=== PATIENT | female | born 1945 | race Caucasian/White ===

== ENCOUNTER 2021-08-11 09:03 | Observation (INO) | payer OTHER ==
--- NOTE | 2021-08-06 10:50 | RAD REPORT ---
EXAM DESCRIPTION: RAD - Chest Pa And Lat (2 Views) - 08/06/2021 10:23 am CLINICAL HISTORY: Pre op pending knee replacement COMPARISON: None TECHNIQUE: Frontal and lateral views of the chest were obtained. FINDINGS: The lungs are clear of a peripheral mass or consolidation. Interstitial markings are promi nent believed be baseline fibrotic change. Aortic valve/ proximal aortic stent in place. No acute jassi lure or volume overload. Heart size is normal and central vasculature is within normal limits. No pleural effusion or pneumothorax seen. No acute bony finding noted. No aortic abnormality. IMPRESSION: No acute cardiopulmonary process. Prominent interstitial pattern is believed to be baseline fibrotic change.
[2021-08-06 11:07] LABS: Absolute Lymphocytes (CBC) 1.8 K/uL (0.7-4.9); Lymphocytes % 31.6 % (15.3-44.8); MPV 9.2 fL (7.6-11.3); RBC Red Blood Cell Count 3.66 M/uL (3.86-4.86)
[2021-08-06 11:11] LABS: Protime INR 0.94
[2021-08-06 11:11] LABS: Urine Appearance CLEAR (Clear); Urine Bilirubin NEGATIVE (Negative); Urine Blood 2+ (Negative); Urine Color YELLOW (Yellow); Urine Glucose NEGATIVE (Negative); Urine Protein NEGATIVE (Negative); Urine Specific Gravity 1.015 (1.005-1.030); Urine Urobilinogen 0.2 mg/dL (0.2-1.0); Urine pH 6.5 (5.0-7.0)
[2021-08-06 11:20] LABS: Urine Microscopic Reflex ORDER UMIC
[2021-08-06 11:34] LABS: Albumin 3.7 g/dL (3.4-5.0); Bilirubin Total 0.5 mg/dL (0.2-1.0); Potassium 4.2 mmol/L (3.5-5.1); Protein, Total 6.9 g/dL (6.4-8.2)
[2021-08-06 11:42] LABS: Urine Bacteria <20 /HPF (<20)
[2021-08-06 11:43] LABS: Urine Mucus SLIGHT /HPF (NONE SEEN)
[2021-08-11] MEDS: NA CHLORIDE 0.9% 1,000 ML ONE ×2 (09:32→11:19)
[2021-08-11] MEDS ORDERED: CEFAZOLIN/SWI 2gm 2 GM/20 ML SYR ONE (09:46)
[2021-08-11] MEDS ORDERED: FENTANYL CITR 100 MCG/2 ML ONE ×2 (10:06→13:45)
[2021-08-11] MEDS ORDERED: MIDAZOLAM HCL 2 MG/2 ML INJ ONE ×2 (10:06→16:04)
[2021-08-11] MEDS ORDERED: BUPIVACAINE 0.25% PF 10 ML VIAL ONE (10:06)
[2021-08-11] MEDS ORDERED: dexAMETHasone 4 MG/ML VIAL ONE (10:07)
[2021-08-11] MEDS ORDERED: LIDOCAINE 1% MPF 5 ML VIAL ONE (10:08)
[2021-08-11] MEDS ORDERED: CELECOXIB 100 MG CAPSULE ONE (10:43)
[2021-08-11] MEDS ORDERED: ACETAMINOPHEN 500 MG TAB ONE (10:45)
[2021-08-11] MEDS ORDERED: ONDANSETRON 4 MG/2 ML VIAL ONE (12:36)
[2021-08-11] MEDS ORDERED: ROCURONIUM 50 MG/5 ML VIAL IV ONE (12:36)
[2021-08-11] MEDS ORDERED: propofoL 200 MG/20 ML VIAL IV ONE (12:36)
[2021-08-11] MEDS ORDERED: NS 0.9% VIAL 10 ML ONE (12:36)
[2021-08-11] MEDS ORDERED: LIDOCAINE 2% MPF 5 ML VIAL ONE (12:36)
[2021-08-11] MEDS ORDERED: KETAMINE HCL 500 MG/5 ML VIAL ONE (12:36)
[2021-08-11] MEDS ORDERED: TRANEXAMIC ACID 1,000 MG/10 ML VIAL IV ONE (12:43)
[2021-08-11] MEDS ORDERED: HYDROMORPHONE HCL 1 MG/ML INJ ONE (12:43)
[2021-08-11] MEDS ORDERED: GLYCOPYRROLATE 0.2 MG/ML SYR ONE (13:20)
[2021-08-11] MEDS ORDERED: ONDANSETRON 4 MG/2 ML VIAL IV PRN (15:10)
--- NOTE | 2021-08-11 15:10 | P.BOP ---
Preoperative diagnosis: right knee arthritis Postoperative diagnosis: same Primary procedure: right TKA Estimated blood loss: 100 ccs Anesthesia: General Complications: None Transferred to: Recovery Room Condition: Good
--- OUTSIDE RECORDS SUMMARY | 2021-08-11 15:27 | XMS REPORT | Continuity of Care Document ---
:1945 Author Organization [facility] t Address [address] [place] [address] Care Team Providers Name Role Phone Jurado Attending Clinician Unavailable Problems This patient has no known problems. Allergies, Adverse Reactions, Alerts This patient has no known allergies or adverse reactions. Medications This patient has no known medications. Procedures This patient has no known procedures. Encounters Start End Encounter Admission Attending Care Care Encounter Source Date/Time Date/Time Type Type Clinicians Facility Department ID 2021-08-04 Outpatient Adrien [facility] [id number] [facility] 09:16:02 [facility] 2021-07-15 Outpatient Adrien [facility] [id number] [facility] 15:30:05 [facility] 2021-07-14 Outpatient Adrien [facility] [id number] [facility] 15:20:03 [facility] 2021-06-17 Outpatient Adrien [facility] [id number] [facility] 15:30:03 [facility] 2021-06-11 Outpatient Adrien [facility] [id number] [facility] 17:06:02 [facility] 2021-05-20 Outpatient Jurado, [facility] [id number] [facility] 14:27:27 [facility] [id number] [facility] 2021-05-20 Outpatient Jurado, [facility] [id number] [facility] 14:27:07 [place] [id number] [facility] 2021-08-05 2021-08-05 ambulatory [facility] [id number] [facility] 2021-07-31 2021-07-31 ambulatory [facility] [id number] [facility] 2021-07-29 2021-07-29 ambulatory [facility] [id number] [facility] 2021-07-28 2021-07-28 ambulatory [facility] [id number] [facility] 2021-07-07 2021-07-07 ambulatory [facility] [id number] [facility] 2021-07-02 2021-07-02 ambulatory [facility] [id number] [facility] 2021-06-17 2021-06-17 ambulatory [facility] [id number] [facility] 2021-06-11 2021-06-11 ambulatory [facility] [id number] [facility] 2021-06-11 2021-06-11 ambulatory [facility] [id number] [facility] 2021-06-11 2021-06-11 ambulatory [facility] [id number] [facility] 2021-06-04 2021-06-04 ambulatory [facility] [id number] [facility] 2021-05-18 2021-05-18 ambulatory [facility] [id number] [facility] 2021-04-23 2021-04-23 ambulatory [facility] [id number] [facility] 2021-04-14 2021-04-14 ambulatory [facility] [id number] [facility]00 [facility] Results This patient has no known results.
[2021-08-11] MEDS ORDERED: ALBUTEROL 2.5 MG/3 ML NEB SOL ONE (15:44)
[2021-08-11] MEDS ORDERED: MORPHINE 4 MG/ML SYR ONE (16:31)
[2021-08-11] MEDS: HYDROCODONE/APAP 7.5/325 MG TAB PO PRN ×2 (17:23→21:02)
[2021-08-11] MEDS: CEFAZOLIN 1 GM in NA CHLORIDE 0.9% 50 ML IVPB SCH (17:24)
[2021-08-11 18:28] VITALS: BMI 37.0
[2021-08-11] MEDS ORDERED: FUROSEMIDE 40 MG TABLET PO PRN (18:31)
[2021-08-11] MEDS ORDERED: HOME MED 1 EA UNK (Tizanidine Hcl [Tizanidine Hcl] 4 MG Capsule) PO PRN (18:31)
--- NOTE | 2021-08-11 18:31 | P.CNS ---
Date of Consult: 08/11/21 Allergies Sulfa (Sulfonamide Antibiotics) Allergy (Verified 08/11/21 11:24) Nausea/Vomiting tramadol Allergy (Verified 08/11/21 11:24) Anaphylaxis Home Medications: Aspirin [Aspirin EC 81 MG] 81 mg PO BEDTIME 08/06/21 Atorvastatin Calcium [Lipitor] 20 mg PO BEDTIME 08/06/21 Cholecalciferol (Vitamin D3) [Vitamin D3] 50 mcg PO DAILY 08/06/21 Furosemide [Lasix] 40 mg PO DAILYPRN PRN 08/06/21 Gabapentin 600 mg PO QID 08/06/21 Losartan/Hydrochlorothiazide [Losartan-Hctz 100-25 mg Tab] 1 each PO DAILY 08/06/21 Melatonin 10 mg PO BEDTIME 08/06/21 Metformin HCl [Glucophage] 500 mg PO BIDWM 08/06/21 Multivitamin [Multiple Vitamins] 1 each PO DAILY 08/06/21 Quetiapine Fumarate [Seroquel] 50 mg PO BEDTIME 08/06/21 Tizanidine HCl 4 mg PO BEDTIME PRN PRN 08/06/21 - Past Medical/Surgical History Diabetic: Yes -: diabetes -: CHF -: asthma -: IBS -: hypertension -: Stage 3 kidney disease -: CAD -: [place] -: Oziel Hammer's disease (esophageal disfunction) -: cardiac stent -: back surgery -: valve replacement -: cholecystectomy, half liver removed at same time -: appendectomy -: right rotator cuff repair -: esophageal surgery - Family History Father Medical History: Heart disease, Hypertension, Diabetes, Stroke Mother Medical History: Heart disease, Cancer, Kidney disease Notes: bladder cancer Sister Medical History: Cancer, Other (see notes) Notes: breast cancer - Social History Alcohol use: No CD- Drugs: No Caffeine use: No Place of Residence: Home Physical Examination Temp Pulse Resp BP Pulse Ox 96.6 F L 71 18 145/57 H 99 08/11/21 17:16 08/11/21 17:16 08/11/21 17:23 08/11/21 17:16 08/11/21 17:23
[2021-08-11] MEDS ORDERED: TIZANIDINE 4 MG TABLET PO PRN (18:42)
[2021-08-11] MEDS ORDERED: GABAPENTIN 300 MG CAP PO SCH (21:00)
[2021-08-11] MEDS ORDERED: ATORVASTATIN 20 MG TAB PO SCH (21:00)
[2021-08-11] MEDS ORDERED: HOME MED 1 EA UNK (Melatonin [Melatonin] 10 MG Tab.Subl) PO SCH (21:00)
[2021-08-11] MEDS ORDERED: QUETIAPINE 25 MG TAB PO SCH (21:00)
[2021-08-11] MEDS ORDERED: ASPIRIN EC 81 MG TAB PO SCH (21:00)
[2021-08-11] MEDS ORDERED: HOME MED 1 EA UNK (Gabapentin [Gabapentin] 600 MG Tablet) PO SCH (21:00)
[2021-08-11] MEDS ORDERED: HOME MED 1 EA UNK (Quetiapine Fumarate [Seroquel] 50 MG Tablet) PO SCH (21:00)
[2021-08-11] MEDS ORDERED: MELATONIN 5 MG TABLET PO SCH (21:00)
[2021-08-11] MEDS: DOCUSATE NA 100 MG CAP PO PRN (21:02)
[2021-08-11] MEDS: GABAPENTIN 300 MG CAP PO SCH (21:03)
[2021-08-11] MEDS ORDERED: MORPHINE 4 MG/ML SYR IV ONE (22:08)
[2021-08-12] MEDS: CEFAZOLIN 1 GM in NA CHLORIDE 0.9% 50 ML IVPB SCH ×2 (00:24→09:59)
[2021-08-12] MEDS: HYDROCODONE/APAP 7.5/325 MG TAB PO PRN ×3 (01:23→09:57)
--- NOTE | 2021-08-12 02:23 | OP ---
Date of Procedure: 08/11/2021 Surgeon: Alvaro Estes MD Preoperative Diagnosis: Right knee severe arthritic changes. Postoperative Diagnosis: Right knee severe arthritic changes. Procedure: Right total knee arthroplasty using the Perfectguard Total Knee System. Estimated Blood Loss: 200 cc. Complications: There were no complications. Specimen: No pathology specimen sent. Indications: Ms. Lopez is a 75-year-old female who has had severe pain and problems related to her right knee for some time despite conservative management. Risks, benefits, and alternatives of diffe rent methods of treatments were discussed with her and she selects total knee arthroplasty. The [facility] risks, benefits, and alternatives of this were again discussed. She states she understands ever ything as presented and wishes to proceed. Description Of Procedure: The patient was taken to the operating room and placed in the supine posit ion. General anesthesia was obtained by the Anesthesia staff. She has previously had a block in the holding area. Following this, a well-padded tourniquet was placed on superior right thigh. Her rig ht lower extremity than prepped draped usual sterile fashion for procedure. Following this, a standa rd rather extensile incision was made because of excess adipose tissue and was taken down carefully t hrough skin and soft tissue. Meticulous hemostasis was being maintained using Bovie electrocautery. The correct plane is encountered and her patella was visualized after some dissection, and a standar d medial parapatellar arthrotomy was then performed. There was approximately 60 cc of rather normal- appearing synovial fluid expressed. Following this, both the medial and lateral menisci, as well as the anterior cruciate ligament and some fat pad are removed and the knee is brought into flexion with the patella everted. With protection using medial and lateral retractors, intramedullary alignment guide was then placed. This was followed by establishing the distal cut. Rotation was checked and t he sizing guide was then placed. It was found to be a 62.5. The remainder of the femoral cuts were then performed with the exception, we did not cut the box at this point. All bony fragmentation was removed and attention was then turned to the tibia where the medial and lateral menisci were ensured to be completely resected. After this, a tibial cut was made in standard fashion. It was then sized . The knee was then trialed and the patella was found to glide very well and it appeared to have equ al flexion and extension, tightness as well as stability to varus and valgus stress as well as being aligned with perhaps a very slight amount of valgus as planned. After this, the box was cut and the tibia was punched. The patella is calipered and cut with the trial patella being placed. The femur, patella, and tibial tray are then cemented in place after the box has been cut and bone plugs placed . Any unsupported cement was removed with the hip in extension with the patella clamped and a size 1 0 trial polyethylene being placed. After the cement hardened, it was again brought to flexion and ex tension. The patella appears to glide well. It is symmetric in both flexion and extension, coming t o good extension. Decision was made to continue with the 10 mm PS poly, which was then placed withou t difficulty and clamped in place. It was again irrigated to ensure there was no unsupported cement or bony features and brought through range of motion. After this, the arthrotomy was closed in a naomie ertight fashion using interrupted Ethibond sutures. The skin was then closed using Vicryl sutures, f ollowed by carey. The patient was then placed in a well-padded sterile dressing, awakened, and ashley en to recovery room in good condition. There were no complications. SE/MODL Voice ID: [id number] Report ID: [id number]
[2021-08-12] MEDS: ENOXAPARIN 30 MG/0.3 ML SQ SCH ×2 (05:40→09:00)
[2021-08-12] MEDS ORDERED: HOME MED 1 EA UNK (Multivitamin [Multiple Vitamins] Tablet) PO SCH (09:00)
[2021-08-12] MEDS ORDERED: VITAMIN D 1000 UNIT TAB PO SCH (09:00)
[2021-08-12] MEDS ORDERED: HOME MED 1 EA UNK (Cholecalciferol (Vitamin D3) [Vitamin D3] 50 MCG Capsule) PO SCH (09:00)
[2021-08-12] MEDS ORDERED: MULTIVITAMIN TAB PO SCH (09:00)
[2021-08-12] MEDS: GABAPENTIN 300 MG CAP PO SCH ×3 (09:58→16:51)
[2021-08-12] MEDS: METFORMIN HCL 500 MG TAB PO SCH ×2 (10:00→16:51)
[2021-08-12] MEDS: DOCUSATE NA 100 MG CAP PO PRN (10:09)
[2021-08-12] MEDS ORDERED: Oxycodone HCl/Acetaminophen 1 TAB TAB PO PRN (13:33)
[2021-08-12 14:56] VITALS: O2SAT 95
[2021-08-12 17:08] VITALS: BP 125/58; TEMP 98
[2021-08-12] MEDS ORDERED: MORPHINE 4 MG/ML SYR IM ONE (20:26)
== END 2021-08-12 20:58 ==
LOC: OR 09:03 → 2ND 15:24
PROVIDERS: ADMIT Orthopaedic Surgery; ATTEND Orthopaedic Surgery
PROC: 0SRC069 Replacement of Right Knee Joint with Oxidized Zirconium on Polyethylene Synthetic Substitute, Cemented, Open Approach (ICD-10-PCS; principal; 2021-08-11 11:15)
DX: M17.11 Unilateral primary osteoarthritis, right knee (principal); I13.0 Hypertensive heart and chronic kidney disease with heart failure and stage 1 through stage 4 chronic kidney disease, or unspecified chronic kidney disease; E11.22 Type 2 diabetes mellitus with diabetic chronic kidney disease; N18.30 Chronic kidney disease, stage 3 unspecified; I50.9 Heart failure, unspecified; I25.10 Atherosclerotic heart disease of native coronary artery without angina pectoris; K58.9 Irritable bowel syndrome, unspecified; J45.909 Unspecified asthma, uncomplicated; G61.0 Guillain-Barre syndrome; E78.00 Pure hypercholesterolemia, unspecified; Z20.822 Contact with and (suspected) exposure to COVID-19; Z79.84 Long term (current) use of oral hypoglycemic drugs; Z79.82 Long term (current) use of aspirin; Z79.899 Other long term (current) drug therapy; Z88.2 Allergy status to sulfonamides; Z88.6 Allergy status to analgesic agent; Z95.2 Presence of prosthetic heart valve; Z95.5 Presence of coronary angioplasty implant and graft; Z95.1 Presence of aortocoronary bypass graft; Z90.49 Acquired absence of other specified parts of digestive tract; Z90.710 Acquired absence of both cervix and uterus; Z82.62 Family history of osteoporosis; Z82.49 Family history of ischemic heart disease and other diseases of the circulatory system; Z83.3 Family history of diabetes mellitus; Z82.3 Family history of stroke; Z80.52 Family history of malignant neoplasm of bladder; Z80.3 Family history of malignant neoplasm of breast
CPT/HCPCS: 93005; 85025; 36415 ×2; 86900; 86850; 85610; 86901; 82947 ×5; 88304; 88311; 85730; 85018; 85014; 80053; 71046; 97110 ×2; 97112; 97116; 97139; 97161; 97530 ×3; 94010; 27447; U0002; C1776; J2704; J1100; J1650; J2250 ×2; J3010 ×2; J1170; J0690 ×4; J7030; J2405 ×2; G0379; G0378 ×2; 81003; 81015

== ENCOUNTER 2021-09-16 11:40 | Emergency (ER) | payer OTHER ==
--- OUTSIDE RECORDS SUMMARY | 2021-09-16 11:42 | XMS REPORT | Continuity of Care Document ---
:1945 Author Organization [facility] t Address [address] [address] Care Team Providers Name Role Phone ROSA Attending Clinician Unavailable Adrien Attending Clinician Unavailable Flaquito Olguin Attending Clinician Unavailable Flaquito Olguin Admitting Clinician Unavailable Payers Payer Name Policy Type Policy Number Effective Date Expiration Date S terry [facility] [id number] Problems This patient has no known problems. Allergies, Adverse Reactions, Alerts This patient has no known allergies or adverse reactions. Medications This patient has no known medications. Procedures This patient has no known procedures. Encounters Start End Encounter Admission Attending Care Care Encounter Source Date/Time Date/Time Type Type Clinicians Facility Department ID 2021-08-24 Outpatient KIMBERLY ALVAREZ ENCCLR [id number] KIMBERLY 12:33:43 N [facility]BDI 2021-08-04 Outpatient Jurado, [facility] [id number] Common 09:16:02 [facility] 2021-07-15 Outpatient Adrien, [facility] [id number] Common 15:30:05 [facility] 2021-07-14 Outpatient Jurado, [facility] [id number] Common 15:20:03 [facility] 2021-06-17 Outpatient Jurado, [facility] [id number] Common 15:30:03 [facility] 2021-06-11 Outpatient Jurado, STLMLC ST[facility] [id number] Common 17:06:02 [facility] 2021-05-20 Outpatient Jurado, STLMLC ST[facility] [id number] Common 14:27:27 [facility] 2021-05-20 Outpatient Jurado, [facility] [id number] Common 14:27:07 [facility] 2021-08-28 2021-08-28 ambulatory [facility]LMLC [facility] [id number] Common 00:00:00 00:00:00 [facility] 2021-08-28 2021-08-28 ambulatory STLMLC STL[facility]C [id number] Common 00:00:00 00:00:00 [facility] 2021-08-12 2021-08-27 Inpatient 3 Khal[place], [place] [id number] [facility] 22:22:00 10:52:00 [place] 0420 2021-08-10 2021-08-10 ambulatory STLMLC [facility] [id number] Common 00:00:00 00:00:00 [facility] 2021-08-05 2021-08-05 ambulatory STLMLC ST[facility]C [id number] Common 00:00:00 00:00:00 [facility] 2021-07-31 2021-07-31 ambulatory STLMLC STL[facility]C [id number] Common 00:00:00 00:00:00 [facility] 2021-07-29 2021-07-29 ambulatory STLMLC [facility] [id number] Common 00:00:00 00:00:00 [facility] 2021-07-28 2021-07-28 ambulatory STLMLC STL[facility]C [id number] Common 00:00:00 00:00:00 [facility] 2021-07-07 2021-07-07 ambulatory STLMLC ST[facility] [id number] Common 00:00:00 00:00:00 [facility] 2021-07-02 2021-07-02 ambulatory STLMLC STL[facility]C [id number] Common 00:00:00 00:00:00 [facility] 2021-06-17 2021-06-17 ambulatory STLMLC STL[facility]C [id number] Common 00:00:00 00:00:00 [facility] 2021-06-11 2021-06-11 ambulatory STLMLC STL[facility]C [id number] Common 00:00:00 00:00:00 [facility] 2021-06-11 2021-06-11 ambulatory STLMLC ST[facility] [id number] Common 00:00:00 00:00:00 [facility] 2021-06-11 2021-06-11 ambulatory STLMLC [facility] [id number] Common 00:00:00 00:00:00 [facility] 2021-06-04 2021-06-04 ambulatory STLMLC ST[facility]C [id number] Common 00:00:00 00:00:00 [facility] 2021-05-18 2021-05-18 ambulatory STLMLC STL[facility]C [id number] Common 00:00:00 00:00:00 [facility] 2021-04-23 2021-04-23 ambulatory STLMLC STL[facility]C [id number] Common 00:00:00 00:00:00 [facility] 2021-04-14 2021-04-14 ambulatory STLMLC STL[facility]C [id number] Common 00:00:00 00:00:00 [facility] Results This patient has no known results.
[2021-09-16 12:29] LABS: Absolute Lymphocytes (CBC) 1.6 K/uL (0.7-4.9); Hematocrit 35.4 % (36.0-45.0); Lymphocytes % 28.4 % (15.3-44.8); MPV 9.8 fL (7.6-11.3); RBC Red Blood Cell Count 3.53 M/uL (3.86-4.86)
--- NOTE | 2021-09-16 12:33 | ER ---
Nurse's Notes [facility] Name: Brenda Lopez Age: 76 yrs Sex: Female : 1945 Arrival Date: 09/16/2021 Time: 11:42 Bed 19 Private MD: Diagnosis: Syncope;Atrioventricular block, second degree Presentation: 09/16 11:42 Chief complaint: Patient states: pt reports syncope/ falls x1 week. Coronavirus screen: wynne Vaccine status: Patient reports receiving the 2nd dose of the covid vaccine. Ebola Screen: Patient denies travel to an Ebola-affected area in the 21 days before illness onset. Initial Sepsis Screen: Does the patient meet any 2 criteria? No. Patient's initial sepsis screen is negative. Does the patient have a suspected source of infection? No. Patient's initial sepsis screen is negative. Risk Assessment: Do you want to hurt yourself or someone else? Patient reports no desire to harm self or others. Onset of symptoms was September 16, 2021. 11:42 Method Of Arrival: EMS: [facility] 11:42 Acuity: ELIDA 3 wynne Triage Assessment: 11:48 General: Appears in no apparent distress. Behavior is calm, cooperative. Pain: wynne Complains of pain in generalize pain. Historical: - Allergies: 11:48 Sulfa (Sulfonamide Antibiotics); wynne 11:48 tramadol; wynne - Home Meds: 11:48 tizanidine 4 mg oral cap 1 cap at bed time [Active]; Lasix 40 mg Oral tab 1 tab once wynne daily [Active]; melatonin 10 mg Oral tab nightly [Active]; cholecalciferol (vitamin D3) 50 mcg (2,000 unit) oral cap [Active]; metformin 500 mg Oral tab 1 tab 2 times per day [Active]; losartan-hydrochlorothiazide 100-25 mg oral tab 1 tab once daily [Active]; gabapentin 300 mg oral cap 1 cap 3 times per day [Active]; atorvastatin 20 mg oral tab 1 tab nightly [Active]; aspirin 81 mg Oral tab [Active]; oxycodone-acetaminophen 2.5-325 mg Oral tab 1 tab q8hr [Active]; Colace 100 mg oral cap 1 cap once daily [Active]; - PMHx: 11:48 Chronic obstructive lung disease; Diabetes mellitus; Hypertensive disorder; Asthma; wynne Chronic back pain; - Immunization history:: Adult Immunizations up to date. - Social history:: Smoking status: Patient denies any tobacco usage or history of. - Family history:: not pertinent. - Hospitalizations: : No recent hospitalization is reported. Screenin:59 Abuse screen: Denies threats or abuse. Denies injuries from another. Nutritional wynne screening: No deficits noted. Tuberculosis screening: No symptoms or risk factors identified. Fall Risk None identified. Assessment: 12:16 General: Appears in no apparent distress. comfortable, Behavior is calm, cooperative, ld1 appropriate for age. Pain: Denies pain. Neuro: Level of Consciousness is awake, alert, obeys commands, Oriented to person, place, time, situation. Cardiovascular: Capillary refill < 3 seconds Patient's skin is warm and dry. Rhythm is sinus bradycardia. Respiratory: Airway is patent Respiratory effort is even, unlabored. GI: Abdomen is round non-distended. : No signs and/or symptoms were reported regarding the genitourinary system. EENT: No signs and/or symptoms were reported regarding the EENT system. Derm: No signs and/or symptoms reported regarding the dermatologic system. Musculoskeletal: No signs and/or symptoms reported regarding the musculoskeletal system. 12:17 Reassessment: Unable to obtain accurate blood pressure, pt refuses to allow me to place ld1 blood pressure cuff on arm properly. States "I will remove it if you try to place it on my upper arm." Educated pt on reason for needing to place cuff in proper area. Pt still refusing to allow me to place blood pressure cuff on arm. Notified ERP. Blood pressure cuff placed to lower left arm - readings remaining low. 13:56 Reassessment: Pt son phone number - Sourav Lopez - [phone]. ld1 14:09 Reassessment: Patient appears in no apparent distress at this time. Patient and/or ld1 family updated on plan of care and expected duration. Pain level reassessed. 16:12 Reassessment: Patient appears in no apparent distress at this time. Patient and/or ld1 family updated on plan of care and expected duration. Pain level reassessed. Vital Signs: 11:42 BP 116 / 65; Pulse 52; Resp 18; Temp 98.0(O); Pulse Ox 95% on R/A; Weight 81.65 kg; wynne Height 5 ft. 1 in. (154.94 cm); 12:16 BP 98 / 36; Pulse 49; Resp 14; Pulse Ox 98% on R/A; Pain 0/10; ld1 12:54 BP 104 / 46; Pulse 47; Resp 18; Pulse Ox 98% on R/A; ld1 13:56 BP 99 / 45; Pulse 45; Resp 18; Pulse Ox 100% on R/A; ld1 14:09 BP 103 / 52; Pulse 54; Resp 18; Pulse Ox 96% on R/A; ld1 14:47 BP 109 / 45; Pulse 50; Resp 18; Pulse Ox 97% on R/A; ld1 16:12 BP 122 / 46; Pulse 48; Resp 17; Pulse Ox 97% on R/A; ld1 17:03 BP 126 / 51; Pulse 53; Resp 18; Pulse Ox 97% on R/A; ld1 19:05 BP 128 / 50; Pulse 49; Resp 18; Pulse Ox 100% on R/A; ld1 19:51 BP 116 / 44; Pulse 55; Resp 18; Pulse Ox 100% on R/A; ld1 11:42 Body Mass Index 34.01 (81.65 kg, 154.94 cm) wynne ED Course: 11:42 Patient arrived in ED. wynne 11:43 Shakir Fox MD is Attending Physician. rn 11:47 Triage completed. wynne 11:48 Arm band placed on. wynne 11:59 Patient has correct armband on for positive identification. Bed in low position. wynne 11:59 No provider procedures requiring assistance completed. Maintain EMS IV. Site clean \\T\\ wynne dry. Gauge \\T\\ site: 20g RAC. 12:00 EKG done, by ED staff, reviewed by Shakir Fox MD. mb7 12:01 Placed in gown. Call light in reach. Side rails up X 1. Door closed. Noise minimized. mb7 Warm blanket given. 12:15 Tayla Gee, SAKSHI is Primary Nurse. ld1 12:19 SARS-COV-2 RT PCR (Document "Date of Onset" if Symptomatic) Sent. ld1 12:34 XRAY Chest (1 view) In Process Unspecified. EDMS 19:53 Patient transferred, IV remains in place. ld1 Administered Medications: 12:39 Drug: NS 0.9% 500 ml Route: IV; Rate: bolus; Site: right antecubital; ld1 14:22 Follow up: Response: No adverse reaction; IV Status: Completed infusion; IV Intake: ld1 500ml 14:20 Drug: NS 0.9% 250 ml Route: IV; Rate: bolus; Site: right antecubital; ld1 Medication: 12:00 VIS not applicable for this client. wynne Intake: 14:22 IV: 500ml; Total: 500ml. ld1 Outcome: 12:32 ER care complete, transfer ordered by . rn 19:53 Transferred by ground EMS to [facility]. ld1 19:53 Condition: stable 19:53 Instructed on the need for transfer. 20:11 Patient left the ED. vc1 Signatures: Dispatcher [employer] EDMS Shakir Fox MD MD rn Dibbern, Lauren, RN RN ld1 Pam Waldron mb7 ChelseyStageAnjana oconnell RN RN ha Calcote, Vanessa, RN RN vc1 Corrections: (The following items were deleted from the chart) 11:59 11:47 Allergies: No Known Allergies; wynne wynne
--- NOTE | 2021-09-16 12:33 | EDPHYS ---
Physician Documentation [facility] Name: Brenda Lopez Age: 76 yrs Sex: Female : 1945 Arrival Date: 09/16/2021 Time: 11:42 Bed 19 Private MD: ED Physician Shakir Fox HPI: 09/16 12:44 This 76 yrs old Female presents to ER via EMS with complaints of syncope. rn 12:44 The patient has experienced syncope. rn 12:45 Onset: The symptoms/episode began/occurred 1 week(s) ago. Duration: The patient has had rn multiple episodes. Context: occurred at home, occurred while the patient was at rest. Associated injury: The patient did not suffer any apparent associated injury. Associated signs and symptoms: Pertinent positives: dizziness, lightheadedness, Pertinent negatives: abdominal pain, chest pain, shortness of breath. Current symptoms: Currently, the patient is not experiencing any symptoms. The patient has experienced similar episodes in the past. The patient has not recently seen a physician. EMS reports multiple syncopal episodes today, has been having syncope and falls for last week, had 1 earlier today, then EMS witnessed 2 episodes while at rest and in their stretcher. No preceding symptoms or warnings. . Historical: - Allergies: 11:48 Sulfa (Sulfonamide Antibiotics); wynne 11:48 tramadol; wynne - Home Meds: 11:48 tizanidine 4 mg oral cap 1 cap at bed time [Active]; Lasix 40 mg Oral tab 1 tab once wynne daily [Active]; melatonin 10 mg Oral tab nightly [Active]; cholecalciferol (vitamin D3) 50 mcg (2,000 unit) oral cap [Active]; metformin 500 mg Oral tab 1 tab 2 times per day [Active]; losartan-hydrochlorothiazide 100-25 mg oral tab 1 tab once daily [Active]; gabapentin 300 mg oral cap 1 cap 3 times per day [Active]; atorvastatin 20 mg oral tab 1 tab nightly [Active]; aspirin 81 mg Oral tab [Active]; oxycodone-acetaminophen 2.5-325 mg Oral tab 1 tab q8hr [Active]; Colace 100 mg oral cap 1 cap once daily [Active]; - PMHx: 11:48 Chronic obstructive lung disease; Diabetes mellitus; Hypertensive disorder; Asthma; wynne Chronic back pain; - Immunization history:: Adult Immunizations up to date. - Social history:: Smoking status: Patient denies any tobacco usage or history of. - Family history:: not pertinent. - Hospitalizations: : No recent hospitalization is reported. ROS: 12:45 Constitutional: Negative for fever, chills, and weight loss, Eyes: Negative for injury, rn pain, redness, and discharge, Neck: Negative for injury, pain, and swelling, Cardiovascular: Negative for chest pain, palpitations, and edema, Respiratory: Negative for cough, and pleuritic chest pain, Abdomen/GI: Negative for abdominal pain, nausea, vomiting, diarrhea, and constipation, Back: Negative for injury and pain, MS/Extremity: Negative for injury and deformity, Skin: Negative for injury, rash, and discoloration, Neuro: Negative for headache, numbness, tingling, and seizure. Exam: 12:45 Constitutional: This is a well developed, well nourished patient who is awake, alert, rn and in no acute distress. Head/Face: Normocephalic, atraumatic. ENT: dry MM Cardiovascular: Bradycardic, irregular Respiratory: No increased work of breathing, no retractions or nasal flaring. Abdomen/GI: Soft, non-tender Skin: Warm, dry MS/ Extremity: Pulses equal, no cyanosis. Neuro: Awake and alert, GCS 15 Vital Signs: 11:42 BP 116 / 65; Pulse 52; Resp 18; Temp 98.0(O); Pulse Ox 95% on R/A; Weight 81.65 kg; wynne Height 5 ft. 1 in. (154.94 cm); 12:16 BP 98 / 36; Pulse 49; Resp 14; Pulse Ox 98% on R/A; Pain 0/10; ld1 12:54 BP 104 / 46; Pulse 47; Resp 18; Pulse Ox 98% on R/A; ld1 13:56 BP 99 / 45; Pulse 45; Resp 18; Pulse Ox 100% on R/A; ld1 14:09 BP 103 / 52; Pulse 54; Resp 18; Pulse Ox 96% on R/A; ld1 14:47 BP 109 / 45; Pulse 50; Resp 18; Pulse Ox 97% on R/A; ld1 16:12 BP 122 / 46; Pulse 48; Resp 17; Pulse Ox 97% on R/A; ld1 17:03 BP 126 / 51; Pulse 53; Resp 18; Pulse Ox 97% on R/A; ld1 19:05 BP 128 / 50; Pulse 49; Resp 18; Pulse Ox 100% on R/A; ld1 19:51 BP 116 / 44; Pulse 55; Resp 18; Pulse Ox 100% on R/A; ld1 11:42 Body Mass Index 34.01 (81.65 kg, 154.94 cm) wynne MDM: 11:43 Patient medically screened. rn 12:31 ED course: Consulted with Dr. Mora, regarding 2nd AV block and syncopal episodes, rn ECG image sent to him and reviewed, recommends transfer. . 13:50 Data reviewed: vital signs, nurses notes, lab test result(s), EKG, and as a result, I rn will admit patient. 14:26 Differential Diagnosis: cardiac arrhythmia, idiopathic syncope, vasovagal episode. rn Counseling: I had a detailed discussion with the patient and/or guardian regarding: the historical points, exam findings, and any diagnostic results supporting the discharge/admit diagnosis, lab results, radiology results, the need to transfer to another facility, for higher level of care. 09/16 11:54 Order name: Basic Metabolic Panel; Complete Time: 13:30 rn 09/16 11:54 Order name: CBC with Diff; Complete Time: 12:31 rn 09/16 11:54 Order name: Magnesium; Complete Time: 13:30 rn 09/16 11:54 Order name: NT PRO-BNP; Complete Time: 13:30 rn 09/16 11:54 Order name: Troponin HS; Complete Time: 13:30 rn 09/16 11:55 Order name: SARS-COV-2 RT PCR (Document "Date of Onset" if Symptomatic); Complete Time: rn 14:14 09/16 11:54 Order name: XRAY Chest (1 view); Complete Time: 12:40 rn 09/16 11:54 Order name: EKG; Complete Time: 11:55 rn 09/16 11:54 Order name: Cardiac monitoring; Complete Time: 12:00 rn 09/16 11:54 Order name: EKG - Nurse/Tech; Complete Time: 12:00 rn 09/16 11:54 Order name: IV Saline Lock; Complete Time: 12:06 rn 09/16 11:54 Order name: Labs collected and sent; Complete Time: 12:19 rn 09/16 11:54 Order name: O2 Per Protocol; Complete Time: 12:06 rn 09/16 11:54 Order name: O2 Sat Monitoring; Complete Time: 12:06 rn Administered Medications: 12:39 Drug: NS 0.9% 500 ml Route: IV; Rate: bolus; Site: right antecubital; ld1 14:22 Follow up: Response: No adverse reaction; IV Status: Completed infusion; IV Intake: ld1 500ml 14:20 Drug: NS 0.9% 250 ml Route: IV; Rate: bolus; Site: right antecubital; ld1 Disposition Summary: 09/16/21 12:32 Transfer Ordered Transfer Location: [facility] rn Reason: Higher level of care rn Condition: Stable rn Problem: new rn Symptoms: have improved rn Accepting Physician: (09/16/21 20:11) vc1 Diagnosis - Syncope rn - Atrioventricular block, second degree rn Forms: - Medication Reconciliation Form rn - SBAR form rn Signatures: Dispatcher [employer] EDMS Shakir Fox MD MD rn Dibbern, Lauren RN RN ld1 ChelseyStagerAnjana RN Maude Gary RN RN vc1 Corrections: (The following items were deleted from the chart) 11:59 11:47 Allergies: No Known Allergies; wynne wynne 14:27 12:31 ED course: Consulted with Dr. Mora, regarding 2nd AV block and syncopal rn episodes, recommends transfer. . rn 20:11 12:32 rn vc1
--- NOTE | 2021-09-16 12:39 | RAD REPORT ---
EXAM DESCRIPTION: RAD - Chest Single View - 09/16/2021 12:33 pm CLINICAL HISTORY: syncope Chest pain. COMPARISON: Chest Pa And Lat (2 Views) dated 08/06/2021 FINDINGS: Portable technique limits examination quality. The lungs are grossly clear. The heart is normal in size. No displaced fractures. IMPRESSION: No acute intrathoracic process suspected.
[2021-09-16] MEDS ORDERED: NA CHLORIDE 0.9% 500 ML ONE (12:41)
[2021-09-16 12:52] LABS: Magnesium 2.3 mg/dL (1.8-2.4); Potassium 3.4 mmol/L (3.5-5.1); Troponin High Sensitivity 16.2 pg/mL (<58.9)
[2021-09-16] MEDS ORDERED: NA CHLORIDE 0.9% 250 ML ONE (14:22)
[2021-09-16 20:20] VITALS: TEMP 98
[2021-09-16 20:32] VITALS: O2SAT 100
[2021-09-16 20:34] VITALS: BP 116/44
--- NOTE | 2021-09-17 07:55 | EKG ---
Test Date: 2021-09-16 Test Time: 11:48:09 Branch Logistics Supervisor: MEASUREMENT RESULTS: Intervals: Rate: 49 IL: 238 QRSD: 114 QT: 454 QTc: 410 [place]: P: 33 [place]: 238 QRS: -24 T: 29 INTERPRETIVE STATEMENTS: Sinus bradycardia with 1st degree AV block with premature atrial complexes Cannot rule out Anterior infarct, age undetermined Abnormal ECG Compared to ECG 09/16/2021 11:41:50 Atrial premature complex(es) now present First degree AV block now present Sinus rhythm no longer present Myocardial infarct finding still present Electronically Signed On 09-17-21 07:52:19 CDT by Trey Mora
--- NOTE | 2021-09-17 07:55 | EKG ---
Test Date: 2021-09-16 Test Time: 11:41:50 Energy Management Specialist: MB MEASUREMENT RESULTS: Intervals: Rate: 47 WI: 236 QRSD: 112 QT: 454 QTc: 401 [place]: P: 58 WI: 236 QRS: -26 T: 27 INTERPRETIVE STATEMENTS: Sinus rhythm with 2nd degree AV block (Mobitz II) Cannot rule out Anterior infarct, age undetermined Abnormal ECG Compared to ECG 08/06/2021 09:11:33 Left-axis deviation no longer present Myocardial infarct finding still present Electronically Signed On 09-17-21 07:52:20 CDT by Trey Mora
== END 2021-09-16 20:11 | disposition short-term general hospital (02) ==
LOC: ER 11:40
DX: I44.1 Atrioventricular block, second degree (principal); E11.9 Type 2 diabetes mellitus without complications; I10 Essential (primary) hypertension; J44.9 Chronic obstructive pulmonary disease, unspecified; Z79.82 Long term (current) use of aspirin; Z88.2 Allergy status to sulfonamides; Z88.5 Allergy status to narcotic agent; Z20.822 Contact with and (suspected) exposure to COVID-19
CPT/HCPCS: 96361; 93005 ×2; 85025; 80048; 36415; 83735; 84484; 83880; 71045; 96374; 99285; U0003; J7050; J7040

== ENCOUNTER 2021-09-21 21:51 | Emergency (ER) | payer OTHER ==
--- OUTSIDE RECORDS SUMMARY | 2021-09-21 21:55 | XMS REPORT | Continuity of Care Document ---
:1945 Author Organization [facility] t Address [address] [place] [address] Care Team Providers Name Role Phone ROSA Attending Clinician Unavailable Adrien Attending Clinician Unavailable LATHA AGARWAL Attending Clinician Unavailable OSCAR Attending Clinician Unavailable BRIDGET PANDA Attending Clinician Unavailable Flaquito Olguin Attending Clinician Unavailable OSCAR Admitting Clinician Unavailable Flaquito Olguin Admitting Clinician Unavailable Payers Payer Name Policy Type Policy Number Effective Date Expiration Date S terry MEDICARE A B [id number] 2008 00:00:00 [facility] [id number] Problems This patient has no known problems. Allergies, Adverse Reactions, Alerts Allergy Allergy Status Severity Reaction(s) Onset Inactive Treating Comm ents Source Name Type Date Date Clinician SULFA Allergy Active [facility] ICS) TRAMADOL [facility] Medications This patient has no known medications. Vital Signs Vital Name Observation Time Observation Value Comments Source WEIGHT 2021-09-18 03:00:00 82.7 kg WEIGHT 2021-09-17 11:00:00 82.237 kg HEIGHT 2021-09-17 11:00:00 154.9 cm WEIGHT 2021-09-18 03:00:00 82.7 kg WEIGHT 2021-09-17 11:00:00 82.237 kg HEIGHT 2021-09-17 11:00:00 154.9 cm Procedures This patient has no known procedures. Encounters Start End Encounter Admission Attending Care Care Encounter Source Date/Time Date/Time Type Type Clinicians Facility Department ID 2021-08-24 Outpatient CHAYO LEE, ENCCLR ENCCLR [id number] ENCCLR 12:33:43 N [facility]I 2021-08-04 Outpatient Jurado, STLMLC STLC [id number] Common 09:16:02 [facility] 2021-07-15 Outpatient Jurado, STLMLC STLC [id number] Common 15:30:05 [facility] 2021-07-14 Outpatient Jurado, STLMLC STLC [id number] Common 15:20:03 [facility] 2021-06-17 Outpatient Jurado, STLMLC STLC [id number] Common 15:30:03 [facility] 2021-06-11 Outpatient Jurado, STLMLC STLC [id number] Common 17:06:02 [facility] 2021-05-20 Outpatient Jurado, STLMLC STLC [id number] Common 14:27:27 [facility] 2021-05-20 Outpatient Jurado, STLMLC STLC [id number] Common 14:27:07 [facility] [id number] [facility] 2021-09-24 2021-09-24 [place] [id number] 00:00:00 00:00:00 [facility] 2021-09-16 2021-09-20 Inpatient ER OSCAR, MIGUELANGEL Cardiology [id number] [facility] 21:40:00 10:34:00 SWETAH 2021-08-28 2021-08-28 ambulatory STLC STLC [id number] Common 00:00:00 00:00:00 [facility] 2021-08-28 2021-08-28 ambulatory STLMLC STLMLC [id number] Common 00:00:00 00:00:00 [facility] 2021-08-12 2021-08-27 Inpatient 3 Clau, ENCLISA ORJ [id number] ENCPL 22:22:00 10:52:00 Flaquito 0420 2021-08-10 2021-08-10 ambulatory STLMLC STLMLC [id number] Common 00:00:00 00:00:00 [facility] 2021-08-05 2021-08-05 ambulatory STLMLC STLMLC [id number] Common 00:00:00 00:00:00 [facility] 2021-07-31 2021-07-31 ambulatory STLMLC STLMLC [id number] Common 00:00:00 00:00:00 [facility] 2021-07-29 2021-07-29 ambulatory STLMLC STLMLC [id number] Common 00:00:00 00:00:00 [facility] 2021-07-28 2021-07-28 ambulatory STLMLC STLMLC [id number] Common 00:00:00 00:00:00 [facility] 2021-07-07 2021-07-07 ambulatory STLMLC STLMLC [id number] Common 00:00:00 00:00:00 [facility] 2021-07-02 2021-07-02 ambulatory STLMLC STLMLC [id number] Common 00:00:00 00:00:00 [facility] 2021-06-17 2021-06-17 ambulatory STLMLC STLMLC [id number] Common 00:00:00 00:00:00 [facility] 2021-06-11 2021-06-11 ambulatory STLMLC STLMLC [id number] Common 00:00:00 00:00:00 [facility] 2021-06-11 2021-06-11 ambulatory STLMLC STLMLC [id number] Common 00:00:00 00:00:00 [facility] 2021-06-11 2021-06-11 ambulatory STLMLC STLMLC [id number] Common 00:00:00 00:00:00 [facility] 2021-06-04 2021-06-04 ambulatory STLMLC STLMLC [id number] Common 00:00:00 00:00:00 [facility] 2021-05-18 2021-05-18 ambulatory STLMLC STLMLC [id number] Common 00:00:00 00:00:00 [facility] 2021-04-23 2021-04-23 ambulatory STLMLC STLMLC [id number] Common 00:00:00 00:00:00 [facility] 2021-04-14 2021-04-14 ambulatory STLMLC STLMLC [id number] Common 00:00:00 00:00:00 [facility] Results Test Description Test Time Test Comments Results Result Comments Source COMPREHENSIVE METABOLIC PANEL 2021-09-20 06:14:53 Test Item Value Reference Range Interpretation Comme nts TOTAL PROTEIN (BEAKER) (test 5.9 gm/dL 6.0-8.5 L code = 770) ALBUMIN (BEAKER) (test code = 3.3 g/dL 3.5-5.0 L 1145) ALKALINE PHOSPHATASE (BEAKER) 59 U/L 30-115 (test code = 346) BILIRUBIN TOTAL (BEAKER) (test 0.6 mg/dL 0.1-1.3 code = 377) SODIUM (BEAKER) (test code = 142 meq/L 135-148 381) POTASSIUM (BEAKER) (test code = 4.5 meq/L 3.5-5.5 379) CHLORIDE (BEAKER) (test code = 107 meq/L 98-106 H 382) CO2 (BEAKER) (test code = 355) 28 meq/L 20-31 BLOOD UREA NITROGEN (BEAKER) 33 mg/dL 10-26 H (test code = 354) CREATININE (BEAKER) (test code 1.29 mg/dL 0.50-1.20 H = 358) GLUCOSE RANDOM (BEAKER) (test 112 mg/dL 70-110 H code = 652) CALCIUM (BEAKER) (test code = 9.3 mg/dL 8.5-10.5 697) AST (SGOT) (BEAKER) (test code 25 U/L 5-40 = 353) ALT (SGPT) (BEAKER) (test code 20 U/L 6-50 = 347) EGFR (BEAKER) (test code = I NSUFFICIENT CLINICAL DATA TO 1092) CALCULATE ESTIM ATED GFR. Visual Basic .Net Developer ID - [id number] 05:55:25 Test Item Value Reference Range Interpretation Comments MAGNESIUM (BEAKER) (test code = 1.8 mg/dL 1.5-3.0 627) Visual Basic .Net Developer ID - [id number] W/PLT COUNT & AUTO [id number] 05:35:45 Test Item Value Reference Range Interpretation Comments WHITE BLOOD CELL COUNT (BEAKER) 6.1 K/ L 4.0-10.0 (test code = 775) RED BLOOD CELL COUNT (BEAKER) 3.33 M/ L 4.00-5.00 L (test code = 761) HEMOGLOBIN (BEAKER) (test code = 10.9 GM/DL 12.0-15.5 L 410) HEMATOCRIT (BEAKER) (test code = 35.6 % 36.0-46.0 L 411) MEAN CORPUSCULAR VOLUME (BEAKER) 106.9 fL 82.0-99.0 H (test code = 753) MEAN CORPUSCULAR HEMOGLOBIN 32.7 pg 27.0-33.0 (BEAKER) (test code = 751) MEAN CORPUSCULAR HEMOGLOBIN CONC 30.6 GM/DL 32.0-36.0 L (BEAKER) (test code = 752) RED CELL DISTRIBUTION WIDTH 13.9 % 12.0-15.0 (BEAKER) (test code = 412) PLATELET COUNT (BEAKER) (test 110 K/CU MM 150-430 L code = 756) MEAN PLATELET VOLUME (BEAKER) 11.7 fL 6.0-11.5 H (test code = 754) NUCLEATED RED BLOOD CELLS 0 /100 WBC 0-0 (BEAKER) (test code = 413) NEUTROPHILS RELATIVE PERCENT 49 % (BEAKER) (test code = 429) LYMPHOCYTES RELATIVE PERCENT 39 % (BEAKER) (test code = 430) MONOCYTES RELATIVE PERCENT 10 % (BEAKER) (test code = 431) EOSINOPHILS RELATIVE PERCENT 1 % (BEAKER) (test code = 432) BASOPHILS RELATIVE PERCENT 1 % (BEAKER) (test code = 437) NEUTROPHILS ABSOLUTE COUNT 2.98 K/ L 1.80-8.00 (BEAKER) (test code = 670) LYMPHOCYTES ABSOLUTE COUNT 2.37 K/ L 1.48-4.50 (BEAKER) (test code = 414) MONOCYTES ABSOLUTE COUNT (BEAKER) 0.59 K/ L 0.00-1.30 (test code = 415) EOSINOPHILS ABSOLUTE COUNT 0.07 K/ L 0.00-0.50 (BEAKER) (test code = 416) BASOPHILS ABSOLUTE COUNT (BEAKER) 0.07 K/ L 0.00-0.20 (test code = 417) IMMATURE GRANULOCYTES-RELATIVE 0 % 0-0 PERCENT (BEAKER) (test code = 2801) POCT-GLUCOSE [id number] 04:06:28 Test Item Value Reference Range Interpretation Comments POC-GLUCOSE METER 124 mg/dL 70-110 H : TESTED A T [facility] [address] (BEAKER) (test code [facility], = 1538) [place] [address] 384: Visual Basic .Net Developer/Techni radha ID = [id number] for V o, Vu POCT-GLUCOSE [id number] 21:31:36 Test Item Value Reference Range Interpretation Comments POC-GLUCOSE METER 130 mg/dL 70-110 H : TESTED A T [facility] [address] (BEAKER) (test code [facility], = 1538) [place] [address] 384: Visual Basic .Net Developer/Techni radha ID = [id number] for V o, Vu [id number] 18:19:25 Test Item Value Reference Range Interpretation Comments MAGNESIUM (BEAKER) (test code = 1.2 mg/dL 1.5-3.0 L 627) Visual Basic .Net Developer ID - [id number] 17:34:20 Test Item Value Reference Range Interpretation Comments POC-GLUCOSE METER 117 mg/dL 70-110 H : TESTED A T [facility] [address] (BEAKER) (test code [facility], = 1538) [place] [address] 384: Visual Basic .Net Developer/Techni radha ID = [id number] for G aspar, Deede BASIC METABOLIC [id number] 15:16:48 Test Item Value Reference Range Interpretation Comments SODIUM (BEAKER) (test 141 meq/L 135-148 code = 381) POTASSIUM (BEAKER) 3.3 meq/L 3.5-5.5 L (test code = 379) CHLORIDE (BEAKER) 104 meq/L 98-106 (test code = 382) CO2 (BEAKER) (test 27 meq/L 20-31 code = 355) BLOOD UREA NITROGEN 38 mg/dL 10-26 H (BEAKER) (test code = 354) CREATININE (BEAKER) 1.32 mg/dL 0.50-1.20 H (test code = 358) GLUCOSE RANDOM 170 mg/dL 70-110 H (BEAKER) (test code = 652) CALCIUM (BEAKER) 9.1 mg/dL 8.5-10.5 (test code = 697) EGFR (BEAKER) (test INSUFFIC IENT CLINICAL code = 1092) DATA TO CALCULA TE ESTIMATED GFR. Visual Basic .Net Developer ID - [id number] W/PLT COUNT & AUTO [id number] 14:59:41 Test Item Value Reference Range Interpretation Comments WHITE BLOOD CELL COUNT (BEAKER) 7.3 K/ L 4.0-10.0 (test code = 775) RED BLOOD CELL COUNT (BEAKER) 3.18 M/ L 4.00-5.00 L (test code = 761) HEMOGLOBIN (BEAKER) (test code = 10.2 GM/DL 12.0-15.5 L 410) HEMATOCRIT (BEAKER) (test code = 33.2 % 36.0-46.0 L 411) MEAN CORPUSCULAR VOLUME (BEAKER) 104.4 fL 82.0-99.0 H (test code = 753) MEAN CORPUSCULAR HEMOGLOBIN 32.1 pg 27.0-33.0 (BEAKER) (test code = 751) MEAN CORPUSCULAR HEMOGLOBIN CONC 30.7 GM/DL 32.0-36.0 L (BEAKER) (test code = 752) RED CELL DISTRIBUTION WIDTH 13.8 % 12.0-15.0 (BEAKER) (test code = 412) PLATELET COUNT (BEAKER) (test 115 K/CU MM 150-430 L code = 756) MEAN PLATELET VOLUME (BEAKER) 11.6 fL 6.0-11.5 H (test code = 754) NUCLEATED RED BLOOD CELLS 0 /100 WBC 0-0 (BEAKER) (test code = 413) NEUTROPHILS RELATIVE PERCENT 61 % (BEAKER) (test code = 429) LYMPHOCYTES RELATIVE PERCENT 29 % (BEAKER) (test code = 430) MONOCYTES RELATIVE PERCENT 9 % (BEAKER) (test code = 431) EOSINOPHILS RELATIVE PERCENT 0 % (BEAKER) (test code = 432) BASOPHILS RELATIVE PERCENT 0 % (BEAKER) (test code = 437) NEUTROPHILS ABSOLUTE COUNT 4.43 K/ L 1.80-8.00 (BEAKER) (test code = 670) LYMPHOCYTES ABSOLUTE COUNT 2.07 K/ L 1.48-4.50 (BEAKER) (test code = 414) MONOCYTES ABSOLUTE COUNT (BEAKER) 0.67 K/ L 0.00-1.30 (test code = 415) EOSINOPHILS ABSOLUTE COUNT 0.03 K/ L 0.00-0.50 (BEAKER) (test code = 416) BASOPHILS ABSOLUTE COUNT (BEAKER) 0.03 K/ L 0.00-0.20 (test code = 417) IMMATURE GRANULOCYTES-RELATIVE 0 % 0-0 PERCENT (BEAKER) (test code = 2801) POCT-GLUCOSE [id number] 11:48:08 Test Item Value Reference Range Interpretation Comments POC-GLUCOSE METER 109 mg/dL 70-110 : TESTED A T [facility] 115[address] (BEAKER) (test code [facility] [address] [facility], = 1538) [place] [address] 384: Visual Basic .Net Developer/Techni radha ID = [id number] for G natalie Eduranjithbozena POCT-GLUCOSE [id number] 07:10:46 Test Item Value Reference Range Interpretation Comments POC-GLUCOSE METER 146 mg/dL 70-110 H : TESTED A T [facility] [address]30[address] (BEAKER) (test code [address], = 1538) [place] [address] 384: Visual Basic .Net Developer/Techni radha ID = [id number] for Ximena gonzalez Nirmala POCT-GLUCOSE [id number] 22:17:18 Test Item Value Reference Range Interpretation Comments POC-GLUCOSE METER 227 mg/dL 70-110 H : TESTED A T [facility] [address]655 (BEAKER) (test code [facility] [address], = 1538) [place] [address] 384: Visual Basic .Net Developer/Techni radha ID = [id number] for Aliyah Ramesh PROTEIN ELECTROPHORESIS, SERUM WITH REFLEX TO [id number] 17:43:55 Test Item Value Reference Range Interpretation Comments ALBUMIN FRACTION 3.6 gm/dL 3.5-5.5 (BEAKER) (test code = 405) ALPHA 1 FRACTION 0.3 gm/dL 0.2-0.4 (BEAKER) (test code = 389) ALPHA 2 FRACTION 0.9 gm/dL 0.4-1.0 (BEAKER) (test code = 390) BETA FRACTION 0.7 gm/dL 0.5-1.1 (BEAKER) (test code = 392) GAMMA GLOBULIN 0.8 gm/dL 0.7-1.6 FRACTION (BEAKER) (test code = 391) INTERPRETATION-119 Normal electrophoretic (BEAKER) (test code pattern. = 2615) [id number]-01 Shira Lamar MD 9 (BEAKER) (test (electronic signature) code = 2616) PROTEIN TOTAL 6.3 gm/dL 6.0-8.3 SERUM, SPEP (BEAKER) (test code = 2660) Visual Basic .Net Developer ID - DBOperator ID - ADMPOCT-GLUCOSE [id number] 17:02:31 Test Item Value Reference Range Interpretation Comments POC-GLUCOSE METER 211 mg/dL 70-110 H : TESTED A T [facility] [address] (BEAKER) (test code [facility], = 1538) [place] [address] 384: Visual Basic .Net Developer/Techni radha ID = [id number] for Yoon Tejada POCT-GLUCOSE [id number] 11:20:34 Test Item Value Reference Range Interpretation Comments POC-GLUCOSE METER 151 mg/dL 70-110 H : TESTED A T [facility] [address] (BEAKER) (test code [facility], = 1538) [place] [address] 384: Visual Basic .Net Developer/Techni radha ID = [id number] for Yoon Tejada [id number] 09:36:42 Test Item Value Reference Range Interpretation Comments PARTIAL THROMBOPLASTIN TIME 27.5 seconds 23.2-36.1 (BEAKER) (test code = 760) POCT-GLUCOSE [id number] 05:58:41 Test Item Value Reference Range Interpretation Comments POC-GLUCOSE METER 135 mg/dL 70-110 H : [place] [address] (BEAKER) (test code [facility] [address] [facility], = 1538) [facility] 77 384: Visual Basic .Net Developer/Techni radha ID = [id number] for Soraya Riddle BASIC METABOLIC [id number] 05:20:38 Test Item Value Reference Range Interpretation Comments SODIUM (BEAKER) (test 143 meq/L 135-148 code = 381) POTASSIUM (BEAKER) 3.8 meq/L 3.5-5.5 (test code = 379) CHLORIDE (BEAKER) 104 meq/L 98-106 (test code = 382) CO2 (BEAKER) (test 29 meq/L 20-31 code = 355) BLOOD UREA NITROGEN 56 mg/dL 10-26 H (BEAKER) (test code = 354) CREATININE (BEAKER) 1.89 mg/dL 0.50-1.20 H (test code = 358) GLUCOSE RANDOM 149 mg/dL 70-110 H (BEAKER) (test code = 652) CALCIUM (BEAKER) 9.8 mg/dL 8.5-10.5 (test code = 697) EGFR (BEAKER) (test INSUFFIC IENT CLINICAL code = 1092) DATA TO CALCULA TE ESTIMATED GFR. Visual Basic .Net Developer ID - ZCHRISOperator ID - [id number] W/PLT COUNT & AUTO DIFFERENTIAL 2021-09-18 04:23:02 Test Item Value Reference Range Interpretation Comments WHITE BLOOD CELL COUNT (BEAKER) 4.9 K/ L 4.0-10.0 (test code = 775) RED BLOOD CELL COUNT (BEAKER) 3.12 M/ L 4.00-5.00 L (test code = 761) HEMOGLOBIN (BEAKER) (test code = 10.2 GM/DL 12.0-15.5 L 410) HEMATOCRIT (BEAKER) (test code = 32.9 % 36.0-46.0 L 411) MEAN CORPUSCULAR VOLUME (BEAKER) 105.4 fL 82.0-99.0 H (test code = 753) MEAN CORPUSCULAR HEMOGLOBIN 32.7 pg 27.0-33.0 (BEAKER) (test code = 751) MEAN CORPUSCULAR HEMOGLOBIN CONC 31.0 GM/DL 32.0-36.0 L (BEAKER) (test code = 752) RED CELL DISTRIBUTION WIDTH 14.2 % 12.0-15.0 (BEAKER) (test code = 412) PLATELET COUNT (BEAKER) (test 102 K/CU MM 150-430 L code = 756) MEAN PLATELET VOLUME (BEAKER) 11.9 fL 6.0-11.5 H (test code = 754) NUCLEATED RED BLOOD CELLS 0 /100 WBC 0-0 (BEAKER) (test code = 413) NEUTROPHILS RELATIVE PERCENT 47 % (BEAKER) (test code = 429) LYMPHOCYTES RELATIVE PERCENT 38 % (BEAKER) (test code = 430) MONOCYTES RELATIVE PERCENT 12 % (BEAKER) (test code = 431) EOSINOPHILS RELATIVE PERCENT 2 % (BEAKER) (test code = 432) BASOPHILS RELATIVE PERCENT 1 % (BEAKER) (test code = 437) NEUTROPHILS ABSOLUTE COUNT 2.27 K/ L 1.80-8.00 (BEAKER) (test code = 670) LYMPHOCYTES ABSOLUTE COUNT 1.82 K/ L 1.48-4.50 (BEAKER) (test code = 414) MONOCYTES ABSOLUTE COUNT (BEAKER) 0.59 K/ L 0.00-1.30 (test code = 415) EOSINOPHILS ABSOLUTE COUNT 0.11 K/ L 0.00-0.50 (BEAKER) (test code = 416) BASOPHILS ABSOLUTE COUNT (BEAKER) 0.05 K/ L 0.00-0.20 (test code = 417) IMMATURE GRANULOCYTES-RELATIVE 0 % 0-0 PERCENT (BEAKER) (test code = 2801) POCT-GLUCOSE [id number] 21:24:50 Test Item Value Reference Range Interpretation Comments POC-GLUCOSE METER 162 mg/dL 70-110 H : TESTED A T [facility] [address] (BEAKER) (test code [facility], = 1538) [place] [address] 384: Visual Basic .Net Developer/Techni radha ID = [id number] for N demetrio, Soraya POCT-GLUCOSE [id number] 16:31:48 Test Item Value Reference Range Interpretation Comments POC-GLUCOSE METER 184 mg/dL 70-110 H : TESTED A T [facility] [address]288 (BEAKER) (test code [facility], = 1538) [place] [address] 384: Visual Basic .Net Developer/Techni radha ID = [id number] for Rosalina Wang VITAMIN D, [id number] 14:35:18 Test Item Value Reference Range Interpretation Comments VITAMIN D 25-OH (BEAKER) (test 59.4 ng/mL 6.6-49.9 H code = 2764) Effective 02/02/2017: Reference Range ChangeNew: 6.6-49.9 ng/mL Previous: 13.0-47.8 ng/mLRecommended Vitamin D Target Range: 30.0-40.0 ng/mLOperator ID - BSEOSINOPHIL SMEAR, [id number] 14:11:39 Test Item Value Reference Range Interpretation Comments EOSINOPHIL SMEAR, URINE (BEAKER) No EOS seen No EOS seen (test code = 1851) POCT-GLUCOSE [id number] 14:02:24 Test Item Value Reference Range Interpretation Comments POC-GLUCOSE METER 196 mg/dL 70-110 H : [place] [address] (BEAKER) (test code [facility], = 1538) [place] [address] 384: Visual Basic .Net Developer/Techni radha ID = [id number] for Rosailna Wang SODIUM, RANDOM [id number] 13:54:46 Test Item Value Reference Range Interpretation Comments SODIUM URINE (BEAKER) (test code = 58 meq/L 243) Reference Range: No NormalsOperator ID - JBALLOALLOUREA NITROGEN, RANDOM URINE 2021-09-17 13:54:46 Test Item Value Reference Range Interpretation Comments UREA NITROGEN URINE (BEAKER) (test 682 mg/dL code = 538) Reference Range: No NormalsOperator ID - JBALLOALLOCREATININE, RANDOM URINE 2021-09-17 13:54:45 Test Item Value Reference Range Interpretation Comments CREATININE URINE (BEAKER) (test 88.6 mg/dL code = 375) Reference Range: No NormalsOperator ID - JBALLOALLOURINALYSIS W/ MICROSCOPIC 2021-09-17 13:41:51 Test Item Value Reference Range Interpretation Comments COLOR (BEAKER) (test code = 470) Yellow CLARITY (BEAKER) (test code = 469) Clear SPECIFIC GRAVITY UA (BEAKER) (test 1.014 1.001-1.035 code = 468) PH UA (BEAKER) (test code = 467) 6.0 5.0-8.0 PROTEIN UA (BEAKER) (test code = Negative Negative 464) GLUCOSE UA (BEAKER) (test code = Negative Negative 365) KETONES UA (BEAKER) (test code = Negative Negative 371) BILIRUBIN UA (BEAKER) (test code = Negative Negative 462) BLOOD UA (BEAKER) (test code = 461) Negative Negative NITRITE UA (BEAKER) (test code = Negative Negative 465) LEUKOCYTE ESTERASE UA (BEAKER) (test Negative Negative code = 466) UROBILINOGEN UA (BEAKER) (test code < mg/dL 0.2-1.0 = 463) RBC UA (BEAKER) (test code = 519) 11 /HPF WBC UA (BEAKER) (test code = 520) 1 /HPF BACTERIA (BEAKER) (test code = 517) Rare MUCUS (BEAKER) (test code = 1574) Rare SQUAMOUS EPITHELIAL (BEAKER) (test < /HPF code = 516) HYALINE CASTS (BEAKER) (test code = 4 /LPF 514) SOURCE(BEAKER) (test code = 2795) Visual Basic .Net Developer ID - [auto]Visual Basic .Net Developer ID - techOSMOLALITY, [id number] 13:37:37 Test Item Value Reference Range Interpretation Comments OSMOLALITY URINE 474 mOsm/kg See_Comment [Automated message] (BEAKER) (test code = The sy stem which 614) generated this result transmitted ref erence range: 40-1,400 . The reference range was not used to int erpret this result as normal/abnormal . PTH, [id number] 12:02:34 Test Item Value Reference Range Interpretation Comments PARATHYROID HORMONE INTACT 28.6 pg/mL 15.0-90.0 (BEAKER) (test code = 577) Visual Basic .Net Developer ID - JBALLOALLOTROPONIN [id number] 09:43:21 Test Item Value Reference Range Interpretation Comments TROPONIN I (BEAKER) (test code = 0.01 ng/mL 0.00-0.15 397) Troponin I (TnI) levels must be interpreted in the context of the presenting symptoms and the clinical findings. Elevated TnI levels indicate myocardial damage, but are not specific for ischemic heart disease. Elevated TnI levels are seen in patients with other cardiac conditions (including myocarditis and congestive heart failure), and slight TnI elevations occur in patients with other conditions, including sepsis, renal failure, acidosis, acute neurological disease, and persistent tachyarrhythmia.Visual Basic .Net Developer ID - JBALLOALLOTSH/FREE T4 IF [id number] 06:22:49 Test Item Value Reference Range Interpretation Comments THYROID STIMULATING HORMONE 2.270 uIU/mL 0.350-5.500 ([facility]) (test code = 772) Visual Basic .Net Developer ID - JBALLOALLOTROPONIN [id number] 06:10:05 Test Item Value Reference Range Interpretation Comments TROPONIN I (CHANIAKER) (test code = 0.02 ng/mL 0.00-0.15 397) Troponin I (TnI) levels must be interpreted in the context of the presenting symptoms and the clinical findings. Elevated TnI levels indicate myocardial damage, but are not specific for ischemic heart disease. Elevated TnI levels are seen in patients with other cardiac conditions (including myocarditis and congestive heart failure), and slight TnI elevations occur in patients with other conditions, including sepsis, renal failure, acidosis, acute neurological disease, and persistent tachyarrhythmia.Visual Basic .Net Developer ID - [id number] 05:45:24 Test Item Value Reference Range Interpretation Comments PARTIAL THROMBOPLASTIN TIME 19.8 seconds 23.2-36.1 L (PENNIE) (test code = 760) PROTHROMBIN [id number] 05:44:22 Test Item Value Reference Range Interpretation Comments PROTIME (DEAN) (test code = 13.7 seconds 11.8-14.4 759) INR ([facility]) (test code = 370) 1.10 1.20-1.50 L RECOMMENDED COUMADIN/WARFARIN INR THERAPY RANGESSTANDARD DOSE: 2.0 - 3.0 Includes: PROPHYLAXIS forvenous thrombosis, systemic embolization; TREATMENT for venous thrombosis and/or pulmonary embolus.HIGH RISK: Target INR is 2.5-3.5 for patients with mechanical heart valves.B-TYPE NATRIURETIC FACTOR (BNP)2021-09-17 01:37:11 Test Item Value Reference Range Interpretation Comments B-TYPE NATRIURETIC PEPTIDE (DEAN) 169 pg/mL 0-100 H (test code = 700) Visual Basic .Net Developer ID - [id number] 01:36:33 Test Item Value Reference Range Interpretation Comments TROPONIN I (BEAKER) (test code = 0.01 ng/mL 0.00-0.15 397) Troponin I (TnI) levels must be interpreted in the context of the presenting symptoms and the clinical findings. Elevated TnI levels indicate myocardial damage, but are not specific for ischemic heart disease. Elevated TnI levels are seen in patients with other cardiac conditions (including myocarditis and congestive heart failure), and slight TnI elevations occur in patients with other conditions, including sepsis, renal failure, acidosis, acute neurological disease, and persistent tachyarrhythmia.Visual Basic .Net Developer ID - [id number] METABOLIC [id number] 01:33:06 Test Item Value Reference Range Interpretation Comments TOTAL PROTEIN 6.3 gm/dL 6.0-8.5 Specimen sligh tly (BEAKER) (test code = hemoly zed 770) ALBUMIN (BEAKER) 3.5 g/dL 3.5-5.0 Specimen sl ightly (test code = 1145) hemolyzed ALKALINE PHOSPHATASE 56 U/L 30-115 (BEAKER) (test code = 346) BILIRUBIN TOTAL 0.6 mg/dL 0.1-1.3 Specimen sli ghtly (BEAKER) (test code = hemoly zed 377) SODIUM (BEAKER) (test 140 meq/L 135-148 code = 381) POTASSIUM (BEAKER) 3.6 meq/L 3.5-5.5 Specimen slightly (test code = 379) hemolyzed CHLORIDE (BEAKER) 97 meq/L 98-106 L (test code = 382) CO2 (BEAKER) (test 32 meq/L 20-31 H code = 355) BLOOD UREA NITROGEN 69 mg/dL 10-26 H (BEAKER) (test code = 354) CREATININE (BEAKER) 2.90 mg/dL 0.50-1.20 H Specimen slightly (test code = 358) hemolyzed GLUCOSE RANDOM 168 mg/dL 70-110 H (BEAKER) (test code = 652) CALCIUM (BEAKER) 11.0 mg/dL 8.5-10.5 H (test code = 697) AST (SGOT) (BEAKER) 32 U/L 5-40 Specimen slightly (test code = 353) hemolyzed ALT (SGPT) (BEAKER) 17 U/L 6-50 Specimen slightly (test code = 347) hemolyzed EGFR (BEAKER) (test INSUFFIC IENT CLINICAL code = 1092) DATA TO CALCULA TE ESTIMATED GFR. Visual Basic .Net Developer ID - [id number] 01:30:10 Test Item Value Reference Range Interpretation Comments TRIGLYCERIDES (BEAKER) 245 mg/dL Speci men slightly (test code = 540) hemolyzed CHOLESTEROL (BEAKER) 136 mg/dL Specime n slightly (test code = 631) hemolyzed HDL CHOLESTEROL (BEAKER) 35 mg/dL (test code = 976) LDL CHOLESTEROL 52 mg/dL CALCULATED (BEAKER) (test code = 633) Triglyceride Reference Range: Low Risk <150 Borderline 150-199 High Risk 200-499 Very High Risk >=500Cholesterol Reference Range: Low Risk <200 Borderline 200-239 High Risk >240HDL Cholesterol Reference Range: Low Risk >=60 High Risk <40LDL Cholesterol Reference Range: Optimal <100 Near Optimal 100-129 Borderline 130-159 High 160-189 Very High >=190 Visual Basic .Net Developer ID - [id number] W/PLT COUNT & AUTO DIFFERENTIAL 2021-09-17 01:15:35 Test Item Value Reference Range Interpretation Comments WHITE BLOOD CELL COUNT (BEAKER) 6.8 K/ L 4.0-10.0 (test code = 775) RED BLOOD CELL COUNT (BEAKER) 3.39 M/ L 4.00-5.00 L (test code = 761) HEMOGLOBIN (BEAKER) (test code = 11.1 GM/DL 12.0-15.5 L 410) HEMATOCRIT (BEAKER) (test code = 35.2 % 36.0-46.0 L 411) MEAN CORPUSCULAR VOLUME (BEAKER) 103.8 fL 82.0-99.0 H (test code = 753) MEAN CORPUSCULAR HEMOGLOBIN 32.7 pg 27.0-33.0 (BEAKER) (test code = 751) MEAN CORPUSCULAR HEMOGLOBIN CONC 31.5 GM/DL 32.0-36.0 L (BEAKER) (test code = 752) RED CELL DISTRIBUTION WIDTH 14.2 % 12.0-15.0 (BEAKER) (test code = 412) PLATELET COUNT (BEAKER) (test 136 K/CU MM 150-430 L code = 756) MEAN PLATELET VOLUME (BEAKER) 11.8 fL 6.0-11.5 H (test code = 754) NUCLEATED RED BLOOD CELLS 0 /100 WBC 0-0 (BEAKER) (test code = 413) NEUTROPHILS RELATIVE PERCENT 59 % (BEAKER) (test code = 429) LYMPHOCYTES RELATIVE PERCENT 29 % (BEAKER) (test code = 430) MONOCYTES RELATIVE PERCENT 10 % (BEAKER) (test code = 431) EOSINOPHILS RELATIVE PERCENT 2 % (BEAKER) (test code = 432) BASOPHILS RELATIVE PERCENT 1 % (BEAKER) (test code = 437) NEUTROPHILS ABSOLUTE COUNT 3.99 K/ L 1.80-8.00 (BEAKER) (test code = 670) LYMPHOCYTES ABSOLUTE COUNT 1.97 K/ L 1.48-4.50 (BEAKER) (test code = 414) MONOCYTES ABSOLUTE COUNT (BEAKER) 0.66 K/ L 0.00-1.30 (test code = 415) EOSINOPHILS ABSOLUTE COUNT 0.13 K/ L 0.00-0.50 (BEAKER) (test code = 416) BASOPHILS ABSOLUTE COUNT (BEAKER) 0.05 K/ L 0.00-0.20 (test code = 417) IMMATURE GRANULOCYTES-RELATIVE 0 % 0-0 PERCENT (BEAKER) (test code = 6151)
[2021-09-22] MEDS ORDERED: ONDANSETRON 4 MG/2 ML VIAL ONE (00:25)
[2021-09-22] MEDS ORDERED: NA CHLORIDE 0.9% 1,000 ML ONE (00:26)
[2021-09-22 01:07] LABS: Absolute Lymphocytes (CBC) 1.5 K/uL (0.7-4.9); Hematocrit 34.9 % (36.0-45.0); Lymphocytes % 22.2 % (15.3-44.8); MPV 10.2 fL (7.6-11.3); RBC Red Blood Cell Count 3.58 M/uL (3.86-4.86)
[2021-09-22 01:23] LABS: Albumin 3.2 g/dL (3.4-5.0); Bilirubin Total 0.8 mg/dL (0.2-1.0); Potassium 3.4 mmol/L (3.5-5.1); Protein, Total 6.5 g/dL (6.4-8.2)
[2021-09-22] MEDS ORDERED: PROMETHAZINE INJ 25 MG/ML AMP ONE (01:58)
--- NOTE | 2021-09-22 03:54 | ER ---
Nurse's Notes [facility] Name: Brenda Lopez Age: 76 yrs Sex: Female : 1945 Arrival Date: 09/21/2021 Time: 21:53 Bed 8 Private MD: Diagnosis: Nausea with vomiting, unspecified;Diarrhea, unspecified;Contusion, Left Foot Presentation: 09/21 21:59 Chief complaint: EMS states: N/v and diarrhea after taking minocycline this morning. ke1 Zofran 4 mg given per EMS. Coronavirus screen: Vaccine status: Patient reports being unvaccinated. Ebola Screen: No symptoms or risks identified at this time. Initial Sepsis Screen: Does the patient meet any 2 criteria? No. Patient's initial sepsis screen is negative. Does the patient have a suspected source of infection? No. Patient's initial sepsis screen is negative. Risk Assessment: Do you want to hurt yourself or someone else? Patient reports no desire to harm self or others. Onset of symptoms was September 21, 2021. 21:59 Method Of Arrival: EMS: [facility] ke1 21:59 Acuity: ELIDA 3 ke1 Triage Assessment: 22:06 General: Appears in no apparent distress. Behavior is appropriate for age. Pain: Denies ke1 pain. Cardiovascular: Parent/caregiver reports patient has had recent pacemaker placement 4 days ago. Respiratory: Airway is patent Trachea Respiratory effort is even, unlabored. GI: Reports nausea, vomiting. Historical: - Allergies: 22:04 Sulfa (Sulfonamide Antibiotics); ke1 22:04 tramadol; ke1 - PMHx: 22:04 Asthma; chronic back pain; Chronic obstructive lung disease; diabetes mellitus; ke1 Hypertensive disorder; - PSHx: 22:05 pacemaker placement; ke1 - Immunization history:: Adult Immunizations Client reports having NOT received the Covid vaccine. - Social history:: Smoking status: Patient denies any tobacco usage or history of. Screenin:07 Abuse screen: Denies threats or abuse. Nutritional screening: No deficits noted. ke1 Tuberculosis screening: No symptoms or risk factors identified. Fall Risk None identified. Assessment: 09/22 01:04 Reassessment: Patient appears in no apparent distress at this time. Patient is alert, ke1 oriented x 3, equal unlabored respirations, skin warm/dry/pink. Patient states feeling better. 04:00 Reassessment: Patient denies pain at this time. Patient states feeling better. Patient ke1 states symptoms have improved. Vital Signs: 09/21 21:59 BP 157 / 47; Pulse 64; Resp 17; Temp 98.2(O); Pulse Ox 100% on R/A; Height 5 ft. 1 in. ke1 (154.94 cm); Pain 0/10; ED Course: 21:53 Patient arrived in ED. mw2 21:58 Maribel Rushing, RN is Primary Nurse. ke1 22:04 Triage completed. ke1 22:07 Arm band placed on left wrist. ke1 22:07 Bed in low position. Call light in reach. ke1 22:39 Ken Cruz MD is Attending Physician. [facility] 09/22 00:29 Foot Left 3 View XRAY In Process Unspecified. EDMS 01:29 CT Abd/Pelvis - Without Contrast In Process Unspecified. EDMS 04:13 No provider procedures requiring assistance completed. IV discontinued. ke1 Administered Medications: 00:30 Drug: NS 0.9% 1000 ml Route: IV; Rate: 1 bolus; Site: left antecubital; ke1 00:31 Not Given (not available MD notifiedd): Pepcid (famotidine) 20 mg IVP once; dilute with ke1 10 mL 0.9% NaCl; give over 2 minutes 00:31 Drug: Zofran (Ondansetron) 4 mg Route: IVP; Site: left antecubital; ke1 01:05 Follow up: Response: Marked relief of symptoms; Nausea is decreased ke1 01:58 Drug: Phenergan (promethazine) 12.5 mg Route: IVP; Site: left antecubital; ke1 Medication: 04:13 VIS not applicable for this client. ke1 Outcome: 03:54 Discharge ordered by . [facility] 04:13 Discharged to home via wheelchair. ke1 04:13 Condition: good 04:13 Discharge instructions given to patient. 04:14 Patient left the ED. ke1 Signatures: Dispatcher [employer] EDMS LindaShane wheat 2 Ken Cruz MD MD [facility] Maribel Rushing RN RN ke1 Corrections: (The following items were deleted from the chart) 00:31 00:30 Pepcid (famotidine) 20 mg IVP in left antecubital ke1 ke1
--- NOTE | 2021-09-22 03:54 | EDPHYS ---
Physician Documentation [facility] Name: Brenda Lopez Age: 76 yrs Sex: Female : 1945 Arrival Date: 09/21/2021 Time: 21:53 Bed 8 Private MD: ED Physician Ken Cruz HPI: 09/21 23:25 This 76 yrs old Female presents to ER via EMS with complaints of Nausea. Vomiting. mh7 Diarrhea. 23:25 The patient presents to the emergency department with nausea, that is moderate, mh7 vomiting, that is intermittent, described as clear fluid, diarrhea, that is intermittent. Onset: The symptoms/episode began/occurred today. Possible causes: antibiotics, Minocycline. The symptoms are aggravated by nothing. The symptoms are alleviated by nothing. Associated signs and symptoms: Pertinent negatives: abdominal pain, anorexia, belching, constipation, dysuria, fever, flatulence, GI bleeding, hematuria, vaginal discharge. Severity of symptoms: At their worst the symptoms were moderate today, in the emergency department the symptoms are unchanged. Historical: - Allergies: 22:04 Sulfa (Sulfonamide Antibiotics); ke1 22:04 tramadol; ke1 - PMHx: 22:04 Asthma; chronic back pain; Chronic obstructive lung disease; diabetes mellitus; ke1 Hypertensive disorder; - PSHx: 22:05 pacemaker placement; ke1 - Immunization history:: Adult Immunizations Client reports having NOT received the Covid vaccine. - Social history:: Smoking status: Patient denies any tobacco usage or history of. ROS: 23:25 Constitutional: Negative for fever, chills, and weight loss, Eyes: Negative for injury, mh7 pain, redness, and discharge, ENT: Negative for injury, pain, and discharge, Neck: Negative for injury, pain, and swelling, Cardiovascular: Negative for chest pain, palpitations, and edema, Respiratory: Negative for shortness of breath, cough, wheezing, and pleuritic chest pain, Back: Negative for injury and pain, : Negative for injury, bleeding, discharge, and swelling, MS/Extremity: Negative for injury and deformity, Skin: Negative for injury, rash, and discoloration, Neuro: Negative for headache, weakness, numbness, tingling, and seizure, Psych: Negative for depression, anxiety, suicide ideation, homicidal ideation, and hallucinations, Allergy/Immunology: Negative for hives, rash, and allergies, Endocrine: Negative for neck swelling, polydipsia, polyuria, polyphagia, and marked weight changes, Hematologic/Lymphatic: Negative for swollen nodes, abnormal bleeding, and unusual bruising. Exam: 23:25 Head/Face: Normocephalic, atraumatic. Eyes: Pupils equal round and reactive to light, mh7 extra-ocular motions intact. Lids and lashes normal. Conjunctiva and sclera are non-icteric and not injected. Cornea within normal limits. Periorbital areas with no swelling, redness, or edema. Neck: Trachea midline, no thyromegaly or masses palpated, and no cervical lymphadenopathy. Supple, full range of motion without nuchal rigidity, or vertebral point tenderness. No Meningismus. Chest/axilla: Normal chest wall appearance and motion. Nontender with no deformity. No lesions are appreciated. Cardiovascular: Regular rate and rhythm with a normal S1 and S2. No gallops, murmurs, or rubs. Normal PMI, no JVD. No pulse deficits. Respiratory: Lungs have equal breath sounds bilaterally, clear to auscultation and percussion. No rales, rhonchi or wheezes noted. No increased work of breathing, no retractions or nasal flaring. Abdomen/GI: Soft, non-tender, with normal bowel sounds. No distension or tympany. No guarding or rebound. No evidence of tenderness throughout. Back: No spinal tenderness. No costovertebral tenderness. Full range of motion. Skin: Warm, dry with normal turgor. Normal color with no rashes, no lesions, and no evidence of cellulitis. MS/ Extremity: Pulses equal, no cyanosis. Neurovascular intact. Full, normal range of motion. Neuro: Awake and alert, GCS 15, oriented to person, place, time, and situation. Cranial nerves II-XII grossly intact. Motor strength 5/5 in all extremities. Sensory grossly intact. Cerebellar exam normal. Normal gait. Psych: Awake, alert, with orientation to person, place and time. Behavior, mood, and affect are within normal limits. 23:25 Constitutional: The patient appears in no acute distress, alert, awake, uncomfortable. Vital Signs: 21:59 BP 157 / 47; Pulse 64; Resp 17; Temp 98.2(O); Pulse Ox 100% on R/A; Height 5 ft. 1 in. ke1 (154.94 cm); Pain 0/10; MDM: 09/22 03:51 Differential diagnosis: gastritis, diverticulitis, viral gastroenteritis, 7 gastroenteritis. Data reviewed: vital signs, nurses notes, lab test result(s), CBC, electrolytes, urinalysis, radiologic studies, CT scan. Data interpreted: Pulse oximetry: on room air is 100 %. Interpretation: normal. Counseling: I had a detailed discussion with the patient and/or guardian regarding: the historical points, exam findings, and any diagnostic results supporting the discharge/admit diagnosis, the presence of at least one elevated blood pressure reading (>120/80) during this emergency department visit, lab results, radiology results, the need for outpatient follow up, to return to the emergency department if symptoms worsen or persist or if there are any questions or concerns that arise at home. Response to treatment: the patient's symptoms have resolved after treatment, the patient's blood pressure is in an acceptable range, mental status has returned to baseline, the patient no longer shows bradycardia, the patient is not short of breath, the patient is not tachycardic, the patient's pain is gone, the patient's temperature has normalized, the patient is now symptom free, patient is well hydrated. 03:54 Patient medically screened. [facility] 09/21 23:54 Order name: CBC with Diff; Complete Time: 02:20 [facility] 09/21 23:54 Order name: CMP; Complete Time: 02:20 [facility] 09/21 23:54 Order name: Lipase; Complete Time: 02:20 [facility] 09/21 23:55 Order name: Foot Left 3 View XRAY [facility] 09/22 00:34 Order name: CT Abd/Pelvis - Without Contrast [facility] 09/21 23:54 Order name: IV Saline Lock; Complete Time: 00:31 [facility] 09/21 23:54 Order name: Labs collected and sent; Complete Time: 00:31 [facility] 09/21 23:54 Order name: EKG; Complete Time: 23:55 [facility] 09/21 23:54 Order name: EKG - Nurse/Tech; Complete Time: 02:48 [facility] Administered Medications: 00:30 Drug: NS 0.9% 1000 ml Route: IV; Rate: 1 bolus; Site: left antecubital; ke1 00:31 Not Given (not available notifiedd): Pepcid (famotidine) 20 mg IVP once; dilute with ke1 10 mL 0.9% NaCl; give over 2 minutes 00:31 Drug: Zofran (Ondansetron) 4 mg Route: IVP; Site: left antecubital; ke1 01:05 Follow up: Response: Marked relief of symptoms; Nausea is decreased ke1 01:58 Drug: Phenergan (promethazine) 12.5 mg Route: IVP; Site: left antecubital; ke1 Disposition Summary: 09/22/21 03:54 Discharge Ordered Location: Home [facility] Problem: new [facility] Symptoms: have improved [facility] Condition: Stable [facility] Diagnosis - Nausea with vomiting, unspecified [facility] - Diarrhea, unspecified [facility] - Contusion, Left Foot [facility] Followup: [facility] - With: Private Physician - When: 1 - 2 days - Reason: Worsening of condition, Recheck today's complaints, Continuance of care, Re-evaluation by your physician Discharge Instructions: - Discharge Summary Sheet [facility] - Nausea and Vomiting, Adult [facility] - Diarrhea, Adult, [id number] [facility] Forms: - Medication Reconciliation Form [facility] - Thank You Letter [facility] - Antibiotic Education [facility] - Prescription Opioid Use [facility] Prescriptions: - ondansetron 4 mg Oral tablet,disintegrating - place 1 tablet by TRANSLINGUAL route every 8 hours As needed; 10 tablet; [facility] Refills: 0, Product Selection Permitted - Pepcid 20 mg Oral Tablet - take 1 tablet by ORAL route every 12 hours for 5 days; 10 tablet; Refills: 0, [facility] Product Selection Permitted - dicyclomine 20 mg Oral Tablet - take 1 tablet by ORAL route 4 times per day As needed; 20 tablet; Refills: 0, [facility] Product Selection Permitted Signatures: Dispatcher [employer] Ken Hughes MD MD [facility] Maribel Rushing RN RN ke1
[2021-09-22 04:52] VITALS: BP 157/47; TEMP 98.2; O2SAT 100
--- NOTE | 2021-09-22 12:17 | EKG ---
Test Date: 2021-09-22 Test Time: 02:38:29 Wardrobe Supervisor: NATALIE MEASUREMENT RESULTS: Intervals: Rate: 71 MD: 234 QRSD: 106 QT: 422 QTc: 458 [place]: P: 85 MD: 234 QRS: -39 T: 46 INTERPRETIVE STATEMENTS: Sinus rhythm with 1st degree AV block Left axis deviation Abnormal ECG Compared to ECG 09/16/2021 11:48:09 Left-axis deviation now present Sinus bradycardia no longer present Atrial premature complex(es) no longer present Myocardial infarct finding no longer present Electronically Signed On 09-22-21 12:16:27 CDT by Trey Mora
--- NOTE | 2021-09-22 14:01 | RAD REPORT ---
EXAM DESCRIPTION: CT - Abdomen Pelvis Wo Contrast - 09/22/2021 6:38 am CLINICAL HISTORY: The patient is 76 years old and is Female; Nausea/vomiting TECHNIQUE: Axial computed tomography images of the abdomen and pelvis without intravenous contrast. Sagittal and coronal reformatted images were created and reviewed. This CT exam was performed usi ng one or more of the following dose reduction techniques: automated exposure control, adjustment o f the mA and/or kV according to patient size, and/or use of iterative reconstruction technique. COMPARISON: No relevant prior studies available. FINDINGS: Lung bases: Unremarkable. No mass. No consolidation. Heart: Valvular prosthesis in the heart. ABDOMEN: Liver: Unremarkable. Gallbladder and bile ducts: Gallbladder is contracted or absent. No ductal dilation. Pancreas: Unremarkable. No ductal dilation. Spleen: Unremarkable. No splenomegaly. Adrenals: Unremarkable. No mass. Kidneys and ureters: Unremarkable. No obstructing stones. No hydronephrosis. Stomach and bowel: Scattered colonic diverticula. No obstruction. No mucosal thickening. PELVIS: Appendix: No findings to suggest acute appendicitis. Bladder: Unremarkable. No stones. Reproductive: Uterus is not seen. ABDOMEN and PELVIS: Intraperitoneal space: Unremarkable. No free air. No significant fluid collection. Bones/joints: Erosive changes and/or prior trauma involving the left iliac bone. Disc space narrowing with degenerative endplate changes in the spine. Laminectomies at L5. No acute fracture. No dislocation. Soft tissues: Unremarkable. Vasculature: Scattered atherosclerotic vascular calcifications. No abdominal aortic aneurysm. Lymph nodes: Unremarkable. No enlarged lymph nodes. IMPRESSION: No acute findings in the abdomen or pelvis. Electronically signed by: Ishaan Romero MD 09/22/2021 1:52 AM CDT Due to temporary technical issues with the PACS/Fluency reporting system, reports are being signed by the in house radiologist without review as a courtesy to ensure prompt reporting. The interpreting r adiologist is fully responsible for the content of the report.
--- NOTE | 2021-09-22 14:03 | RAD REPORT ---
EXAM DESCRIPTION: RAD - Foot Left 3 View - 09/22/2021 12:27 am CLINICAL HISTORY: PAIN TECHNIQUE: Frontal, lateral and oblique views of the left foot. COMPARISON: No relevant prior studies available. FINDINGS: Bones/joints: Osseous structures are osteopenic. No acute or remote fracture deformity. No osseous destruction or erosion. Prominent posterior and inferior calcaneal enthesophytes. Develo pmental fusion at the 5th DIP articulation. No dislocation. Soft tissues: Unremarkable. No radiopaque foreign body. IMPRESSION: No acute injury. Electronically signed by: Sonya Mccoy MD 09/22/2021 12:45 AM CDT Due to temporary technical issues with the PACS/Fluency reporting system, reports are being signed by the in house radiologist without review as a courtesy to ensure prompt reporting. The interpreting r adiologist is fully responsible for the content of the report.
== END 2021-09-22 04:14 | disposition home or self-care (01) ==
LOC: ER 21:51
DX: R11.2 Nausea with vomiting, unspecified (principal); R19.7 Diarrhea, unspecified; S90.32XA Contusion of left foot, initial encounter; E11.9 Type 2 diabetes mellitus without complications; I10 Essential (primary) hypertension; J44.9 Chronic obstructive pulmonary disease, unspecified; Z95.0 Presence of cardiac pacemaker; Z88.2 Allergy status to sulfonamides; Z88.5 Allergy status to narcotic agent
CPT/HCPCS: 93005; 85025; 36415; 83690; 80053; 74176; 73630; 96375; 96374; 99283; J2550; J7030; J2405

== ENCOUNTER 2022-11-18 08:58 | Day surgery (SDC) | payer OTHER ==
[2022-11-18] MEDS ORDERED: ACETAMINOPHEN 120 MG/SUPP PR ONE (09:22)
[2022-11-18] MEDS ORDERED: Ringers Lactate 0 ML IV ONE (09:22)
[2022-11-18] MEDS ORDERED: OFLOXACIN OPH 0.3%-10 ML BTL ONE (09:22)
[2022-11-18] MEDS ORDERED: CEFAZOLIN SODIUM 2 GM/VIAL ONE (09:26)
[2022-11-18] MEDS ORDERED: NA CHLORIDE 0.9% 1,000 ML ONE (09:26)
[2022-11-18] MEDS ORDERED: propofoL 200 MG/20 ML VIAL IV ONE ×5 (10:04→11:33)
[2022-11-18] MEDS ORDERED: FENTANYL CITR 100 MCG/2 ML ONE (10:05)
[2022-11-18] MEDS ORDERED: LIDOCAINE 2% MPF 5 ML VIAL ONE (10:07)
[2022-11-18] MEDS ORDERED: ONDANSETRON 4 MG/2 ML VIAL ONE (10:07)
[2022-11-18] MEDS ORDERED: LIDOCAINE HCL/EPINEPHRINE 20 ML MDV ONE (10:18)
--- NOTE | 2022-11-18 14:57 | OP ---
Date of Procedure: 11/18/2022 Surgeon: Taylor Silva MD Triage Technician: No assistants. Preoperative Diagnoses: Mixed urinary incontinence, urgency, urinary incontinence. Postoperative Diagnoses: Mixed urinary incontinence, urgency, urinary incontinence. Procedures Performed: 1.Stage II InterStim with incision and subcutaneous implantation of sacral nerve stimulator with casey ctronic analysis and programming. 2.Urethral bulking and cystoscopy. Specimens: No specimens. Complications: No complications. Drains: No drains. Condition: Stable. Findings: The anterior wall was very well supported, very slight posterior wall prolapse. No signif icant prolapse. No significant urethral hypermobility was noted. The stimulator was placed in the r ight buttock at the pre-created pocket from the lead that was placed near the right S3. The patient had stage I InterStim placed. The trial showed that she had at least 50% or greater impr ovement. The patient was significantly happy about being able to sleep at least 4 hours a night with out any interruption whereas previously she would wake up multiple times at night and had poor sleep. So, we consented her for progression to stage II and implantation of the neurostimulator. She had significant stress urinary incontinence as well; however, since there was not significant du unt of urethral hypermobility, I consented her for urethral bulking procedure as well as possible mid urethral sling if that was deemed necessary by the exam during the procedure. Procedure In Detail: She was consented, taken back to the OR. 2 g of Ancef were given. SCDs were p laced. She has been in prone position per the OR protocol. Monitored anesthesia care was given. Th e patient was prepped and draped in a sterile fashion using the ChloraPrep solution. Local injection 1% lidocaine with epinephrine 10 mL was administered in the area of the pocket. The previous buttock pocket incision was opened up using a scalpel for the skin and subcutaneous tiss ues, a Bovie to cauterize the tissue. Then, the lead was identified. The percutaneous extension con nection was identified as well and they both were elevated. The lead was removed from the percutaneo us extension and this was cut and the lower part was removed from the field ensuring sterility and th e proximal part of that connector was discarded from the field. The subcutaneous pocket anterior to the muscle surface was enlarged. Hemostasis was secured. The le ad was then clamped of body fluids and dried. The pocket was irrigated with sterile water and suctio prachi. The lead was inserted into the header of the InterStim II neurostimulator until the blue tip was visu alized at the distal window. The single set screw was tightened. The neurostimulator was placed in a subcutaneous pocket with the etched identification side placed up wards and the excessive lead wrapped counterclockwise around the neurostimulator. The programming he ad was then placed over the implanted neurostimulator in a sterile cover to ensure adequate lead conn ection and the parameters were within normal limits. The impedances were confirmed to be within norm al limits. The wound was then closed with the help of 3-0 chromic subcuticular running suture and then 5-0 subcu ticular sutures on the skin. Dermabond was placed. Then, 4 x 4s were placed and the wound was cover ed with a bandage. EBL was minimal, less than 25 mL. The patient was transferred to the recovery ro in a satisfactory condition. Using the clinician programmer or analyst, the generator was programmed. Her p ulse amplitude less than 1 and she was instructed on using her device and her settings, and she will be reprogrammed with calls daily and have followup with her log. Urethral bulking was performed after the patient was turned over to supine position. She was transfe rred by the OR protocol had then MAC was continued. She was placed in a dorsal lithotomy position us ing Xavier stirrups. SCDs were continued. Vulva, vagina, and perineum were prepped and draped in a s terile fashion. Bladder was first drained. Then, I was able to use a urethral bulking Bulkamid levy th and a short pediatric cystoscope. The scope was primed with the sheath. Normal saline was used f or distention medium with a 0-degree scope. Then, the Bulkamid syringe was primed as well after hook ing up to the needle. This was inserted into the sheath and cystoscopy was performed by introducing the sheath and the camera into the lower part of the bladder. Then, the bladder was ensured to be fa irly drained. Then, I pulled back the tip of the sheath to the internal meatus. The needle was adva nced 2 cm into the bladder. Then, the entire system was pulled back to 2 cm and within the urethra. I started the injection with the Bulkamid starting between 4 and 5 o'clock position, than between 1 and 2 o'clock position and then went over to inject between 10 and 11 o'clock position. Once all the se 3 were done, there was a significant occlusion of the urethra, so I stopped here. The urethroscop e was removed. Then, a catheter was placed. A 12-Togolese red rubber catheter was inserted and I was able to drain the bladder. The patient was recovered and sent to the PACU in stable condition. Late r, she had a voiding trial where the amount of urine that was voided was 300, she still has 500 left in her bladder. So, she was catheterized with a 14-Togolese Clark and is being discharged home with a catheter. So, we will see her back in 3 days for a voiding trial. TORIN/NEREYDA Voice ID: [id number] Report ID: [id number]
[2022-11-18 15:16] VITALS: BP 120/59; TEMP 97.1; O2SAT 97
== END 2022-11-18 13:20 | disposition home or self-care (01) ==
LOC: OR 08:58
PROVIDERS: ATTEND Obstetrics & Gynecology
PROC: 0TVD8ZZ Restriction of Urethra, Via Natural or Artificial Opening Endoscopic (ICD-10-PCS; 2022-11-18)
PROC: 0JH73BZ Insertion of Single Array Stimulator Generator into Back Subcutaneous Tissue and Fascia, Percutaneous Approach (ICD-10-PCS; principal; 2022-11-18 12:00)
DX: N39.46 Mixed incontinence (principal); N32.81 Overactive bladder; E11.9 Type 2 diabetes mellitus without complications; E78.5 Hyperlipidemia, unspecified; Z95.0 Presence of cardiac pacemaker; Z88.6 Allergy status to analgesic agent; Z88.2 Allergy status to sulfonamides
CPT/HCPCS: 82947; J2001; J2405; J2704; J3010; J7030; L8606